=== PATIENT | male | born 1940 | race Caucasian/White ===

== ENCOUNTER → 2017-01-14 | Emergency (ER) | payer OTHER ==
--- NOTE | 2017-01-14 07:40 | PDOC ---
History of Present Illness - General Stated Complaint: CARDIAC ARREST Time Seen by Provider: 01/14/17 07:31 History Source: EMS, Family Exam Limitations: Unresponsive - History of Present Illness Initial Comments: 01/14/17 07:32 76y M hx of htn, with a pacemaker for sick sinus syndrome presents in cardiac arrest. The ptaient was in his usual state of health this morning until approx 6:13 ( EMS called 6:15) - the patient sat up in bed and gasped for air and then was unresponsive. The pts started immediate bystander EMS and called EMS. upon arrival by EMS, the patient was in PEA. The patient was intubated and acls was initiated At some point the pt went into vfib, was shocked, and the pts end tidal capnometry increased from 20-40s, upon arrival the pt was in PEA and there was intermittent bouts of vfib for which the pt received shocks, amiodarone, lidocaine. the patient had multiple bedside echos that showed some electrical activity but no organized contractions. the pt was pronounced at 7:19am. 01/14/17 07:50 Luiz Pinon ([place]) notified - awaiting PMD to call back to see if he will do the certificate Message left for Dr. Shayne Robb (PMD) at his office to call us back Marianela Jackson notified at 7:19am 01/14/17 08:10 Dr. Shayne Robb notified, he will do the certificate Called the ME back - The patient is not an [place] case release # [id number] Past History - Past Medical History Allergies/Adverse Reactions: Allergies Allergy/AdvReac Type Severity Reaction Status Date / Time No Known Allergies Allergy Verified 01/14/17 07:46 Review of Systems - Review of Systems Able to Perform ROS?: No *Physical Exam - Physical Exam Comments: 01/14/17 07:47 GENERAL: The patient is nonresponsive HEAD: Normocephalic, atraumatic. EYES: pupils 6mm and fixed ENT: ETT in place NECK: supple LUNGS: ventilated through ETT HEART: no organized rythm ABDOMEN: Soft, no bruising noted EXTREMITIES: no edema. NEUROLOGICAL: No facial assymetry, PSYCH: unable to assess SKIN: mottled skin *DC/Admit/Observation/Transfer Diagnosis at time of Disposition: Cardiac arrest - Discharge Dispostion Condition at time of disposition:
[2017-01-14 08:16] VITALS: BP 0/0; PULSE 0; BMI 22.8
== END | disposition expired ==
LOC: JER 07:03
PROC: 5A12012 Performance of Cardiac Output, Single, Manual (ICD-10-PCS; principal; 2017-01-14)
DX: I46.9 Cardiac arrest, cause unspecified (principal); I10 Essential (primary) hypertension; I49.5 Sick sinus syndrome; Z95.0 Presence of cardiac pacemaker
CPT/HCPCS: 92950; 99285-25